=== PATIENT | male | born 1985 | race Caucasian/White ===

== ENCOUNTER 2019-10-20 15:11 | Emergency (ER) | payer OTHER ==
[~2019-10-20] VITALS: Ht 167.6 cm; Wt 59.0 kg
== END 2019-10-20 17:35 | disposition home or self-care (01) ==
LOC: ER 15:11
DX: S01.82XA Laceration with foreign body of other part of head, initial encounter (principal); W22.8XXA Striking against or struck by other objects, initial encounter; Y93.89 Activity, other specified; Y92.89 Other specified places as the place of occurrence of the external cause; Y99.8 Other external cause status

== ENCOUNTER 2019-10-26 08:09 | Emergency (ER) | payer OTHER ==
[~2019-10-26] VITALS: Ht 167.6 cm; Wt 59.0 kg
== END 2019-10-26 09:40 | disposition home or self-care (01) ==
LOC: ER 08:09
DX: Z48.02 Encounter for removal of sutures (principal)